=== PATIENT | male | born 1965 | race Caucasian/White ===

== ENCOUNTER 2024-10-21 08:26 | Outpatient (CLI) | payer SELFPAY ==
--- OUTSIDE RECORDS SUMMARY | 2024-10-21 08:38 | XMS_ITS | Clinical Summary ---
Author Organization [facility] Address [address] [place] [address] Care Team Providers Care Stoker Installer Name Role Phone Liyah Bridges MD Primary Care Provider [phone] Allergies No known active allergies Medications Multiple Vitamins-Minerals (MULTIVITAMIN ADULT OR) Take 1 tablet by mouth daily. Active meloxicam (MOBIC) 15 MG tabletIndications:P rimary osteoarthritis of left ankle,Pes planus of left foot Take 1 tablet (15 mg total) by mouth daily. 30 tablet 2 2 Active Active Problems Problem Noted Date Diagnosed Date Primary osteoarthritis of left ankle 03/28/2022 Pes planus of left foot 03/28/2022 Acute medial meniscus tear, right, initial encou nter 11/25/2019 Encounters Date Type Department Care Team Description 08/01/2024 9:00 AM TROUSSEAU CONSULTANT - 08/01/2024 11:59 PM [facility] Hospital Encounter [facility] [place] [address] Liyah Bridges MD Discharge Disposition: Home or Self Care (Routine Discharge) 08/01/[address] [place] [place] [address] Liyah Bridges MD 08/01/2024 Travel from Last 3 Months Family History Medical History Relation Comments No Known Problems Brother 1 No Known Problems Brother 2 No Known Problems Brother 3 No Known Problems Brother 4 Diabetes Father suicide Father No Known Problems Maternal Grandfather No Known Problems Maternal Grandmother Cancer Mother No Known Problems Paternal Grandfather No Known Problems Paternal Grandmother Cancer Sister 1 pneumonia Sister 2 Relation Status Comments Brother 1 Alive Brother 2 Alive Brother 3 Alive Brother 4 Alive Father Maternal Grandfather Maternal Grandmother Mother Paternal Grandfather Paternal Grandmother Sister 1 Sister 2 Social History Tobacco Use Types Packs/Day Years Used Date Smoking Tobacco: Never Smokeless Tobacco: Never Alcohol Use Standard Drinks/Week Comments Yes 0 (1 standard drink = 0.6 oz pur e alcohol) seldom Sex and Gender Information Value Date Recorded Sex Assigned at Male 08/01/2024 9:00 AM TROUSSEAU CONSULTANT Legal Sex Male 9:14 PM TROUSSEAU CONSULTANT Gender Identity Not on file Sexual Orientation Not on file Last Filed Vital Signs Vital Sign Reading Time Taken Comments Blood Pressure 154/92 08/03/2022 10:24 AM TROUSSEAU CONSULTANT Pulse 77 08/03/2022 10:24 AM TROUSSEAU CONSULTANT Temperature 35.7 C (96.2 F) 08/03/2022 10:24 AM TROUSSEAU CONSULTANT Respiratory Rate 18 08/03/2022 10:24 AM TROUSSEAU CONSULTANT Oxygen Saturation 100% 08/03/2022 10:24 AM TROUSSEAU CONSULTANT Inhaled Oxygen Concentration - - Weight 95.3 kg (210 lb) 07/30/2022 12:33 PM TROUSSEAU CONSULTANT Height 177.8 cm (5' 10 ) 07/30/2022 12:33 PM TROUSSEAU CONSULTANT Body Mass Index 30.13 07/30/2022 12:33 PM TROUSSEAU CONSULTANT Plan of Treatment Health Maintenance Due Date Last Done Comments Annual Physical 1966 Hepatitis C 1981 DTaP, Tdap and Td Vaccines ( 1 - Tdap) 1982 Pneumococcal Vaccine: 50+ Years (1 of 1 - PCV) 2013 Zoster Vaccines (1 of 2) 2013 COVID-19 Vaccine (2023-2 5 season) 2024 Colorectal Cancer Screening Colonoscopy (10 Years) 08/03/2032 08/03/2022, 08/03/2022 RSV Immunization or 60+ Years (1 - 1-dose 75+ series) 2038 EGD-Segovia's Surveillance Discontinued 08/03, 02/10/2019 Meningococcal B Vaccine Aged Out No l onger eligible based on patient's age to complete this topic Meningococcal Vaccine Aged Out No luis a sujatha eligible based on patient's age to complete this topic RSV Immunizations Under 20 Months Aged Out No longer eligible based on patient's age to complete this topic Procedures Procedure Name Priority Date/Time Associated Diagnosis Comments IRON SAT PANEL (IRON,IBC,%SAT) Routine 08/01/2024 9:30 AM TROUSSEAU CONSULTANT Elevated TSH LIPID PANEL Routine 08/01/2024 9:30 AM TROUSSEAU CONSULTANT Elevated TSH VITAMIN D, 25 OH Routine 08/01/2024 9:30 AM TROUSSEAU CONSULTANT Elevated TSH COMPREHENSIVE METABOLIC PANEL Routine 08/01/2024 9:30 AM TROUSSEAU CONSULTANT Elevated TSH TRIIODOTHYRONINE TOTAL , TT-3 Routine 08/01/2024 9:30 AM TROUSSEAU CONSULTANT Elevated TSH THYROXINE, FREE (FT4) Routine 08/01/2024 9:30 AM TROUSSEAU CONSULTANT Elevated TSH THYROID STIM HORMONE TSH Routine 025 9:30 AM TROUSSEAU CONSULTANT Elevated TSH COLONOSCOPY 08/03/2022 9:41 AM TROUSSEAU CONSULTANT ENDOSCOPY (SCAN ORDER) 6:53 AM TROUSSEAU CONSULTANT from Last 3 Months or Most Recently Relevant to Health Maintenance Results * (ABNORMAL) IRON SATURATION PNL (FE/TIBC/SAT) (08/01/2024 9:30 AM TROUSSEAU CONSULTANT) IRON 61(L) 65 - 175 MCG/DL 08/01/2024 11:24 AM TROUSSEAU CONSULTANT [facility] IRON BINDING CAPACITY 353 250 - 450 MCG/DL 08/01/2024 11:24 AM TROUSSEAU CONSULTANT [facility] IRON SATURATION 17 % 11:24 AM TROUSSEAU CONSULTANT [facility] Comment:REFERENCE RANGE NOT ESTABLISHED 08/01/2024 9:30 AM TROUSSEAU CONSULTANT us Liyah Bridges MD LABORATORY Final Resu lt [facility] [address] [place] [address], [place] [phone] * TRIIODOTHYRONINE TOTAL , TT-3 (08/01/2024 9:30 AM TROUSSEAU CONSULTANT) T3 TOTAL 113 60 - 181 NG/DL 08/02/2024 11:[address] [facility] 08/01/2024 9:30 AM TROUSSEAU CONSULTANT us Liyah Bridges MD LABORATORY Final Resu lt [facility] [address] [place] [address], [place] [phone] * (ABNORMAL) COMPREHENSIVE METABOLIC PANEL (08/01/2024 9:30 AM TROUSSEAU CONSULTANT) SODIUM S/P/B 144 136 - 145 MMOL/L 08/01/2024 10:11 AM [facility] POTASSIUM S/P/B 4.6 3.5 - 5.1 MMOL/L 08/01/2024 10:11 AM [facility] CHLORIDE S/P/B 108(H) 98 - 107 MMOL/L 08/01/2024 10:11 AM [facility] CO2 29.2 21.0 - 32.0 MMOL/L 08/01/2024 10:11 AM [facility] GLUCOSE 110(H) 70 - 99 MG/DL 08/01/2024 10:11 AM [facility] Comment: FASTING GLUCOSE 100 TO 125 MG/DL IS CONSISTENT WITH IMPAIRED FASTING GLUCOSE. FASTING GLUCOSE >125 MG/DL IS CONSISTENT WITH DIABETES. RANDOM GLUCOSE >200 MG/DL WITH HYPERGLYCEMIC SYMPTOMS IS CONSISTENT WITH DIABETES. PER ADA GUIDELINES BUN 15 6 - 24 MG/DL 08/01/2024 10:11 AM [facility] CREATININE S/P/B 1.02 0.70 - 1.30 MG/DL 08/01/2024 10:11 AM [facility] CALCIUM S/P/B 8.8 8.4 - 10.5 MG/DL 08/01/2024 10:11 AM [facility] BILIRUBIN TOTAL S/P/B 0.5 0.2 - 1.0 MG/DL 08/01/2024 10:11 AM [facility] Comment: THIS ASSAY IS NOT RECOMMENDED FOR PATIENTS UNDERGOING TREATMENT WITH ELTROMBOPAG DUE TO THE POTENTIAL FOR FALSELY ELEVATED RESULTS. ALKALINE PHOSPHATASE S/P/B 84 45 - 115 U/L 08/01/2024 10:11 AM [facility] AST 19 15 - 37 U/L 08/01/2024 10:11 AM [facility] ALT 32 16 - 63 U/L 08/01/2024 10:11 AM [facility] TOTAL PROTEIN S/P/B 7.5 6.4 - 8.2 G/DL 08/01/2024 10:11 AM [facility] ALBUMIN S/P/B 3.9 3.4 - 5.0 G/DL 08/01/2024 10:11 AM [facility] ANION GAP 6.8 5.0 - 15.0 MMOL/L 08/01/2024 10:11 AM [facility] OSMOLALITY (CALC) 299 MOSM/KG 025 10:11 AM [facility] Comment:REFERENCE RANGE NOT ESTABLISHED GFR ESTIMATE 84(L) >89 ML/MIN/1. 73 M2 08/01/2024 10:11 AM [facility] GFR NOTES GFR REFERENCE S: 08/01/2024 10:11 AM [facility] Comment: THE ESTIMATED GFR IS CALCULATED USING THE 2020 CKD-EPI EQUATION. THE FOLLOWING CATEGORIES FOR GRADING RENAL FUNCTION ARE RECOMMENDED BY THE INTERNATIONAL SOCIETY OF NEPHROLOGY (KDIGO 2012 CLINICAL PRACTICE GUIDELINE). G1,NORMAL OR HIGH: >89 ml/min/1.73 m2 G2,MILDLY DECREASED: 60-89 ml/min/1.73 m2 G3A,MILDLY TO MODERATELY DECREASED: 45-59 ml/min/1.73 m2 G3B,MODERATELY TO SEVERELY DECREASED: 30-44 ml/min/1.73 m2 G4,SEVERELY DECREASED: 15-29 ml/min/1.73 m2 G5,KIDNEY FAILURE: <15 ml/min/1.73 m2 08/01/2024 9:30 AM TROUSSEAU CONSULTANT us Liyah Bridges MD LABORATORY Final Resu lt Performing Organization Address [facility]/ZIP Co de Phone Number [facility] [address] [place] [address], * LIPID PANEL (08/01/2024 9:30 AM TROUSSEAU CONSULTANT) CHOLESTEROL 129 MG/DL 08/01/2024 7:34 PM TROUSSEAU CONSULTANT [facility] Comment:DESIRABLE: <200 TRIGLYCERIDES 81 MG/DL 08/01/2024 7:34 PM TROUSSEAU CONSULTANT [facility] Comment:<150 NORMAL HDL 42 >39 MG/DL 08/01/2024 7:34 PM TROUSSEAU CONSULTANT [facility] LDL-C 71 MG/DL 08/01/2024 7:34 PM TROUSSEAU CONSULTANT [facility] Comment:<100 OPTIMAL VLDL CALCULATION 16 MG/DL 08/01/19 7:34 PM TROUSSEAU CONSULTANT [facility] Comment:REFERENCE RANGE NOT ESTABLISHED CHOL/HDL RATIO 3.1 08/01/2024 7:34 PM TROUSSEAU CONSULTANT [facility] Comment:REFERENCE RANGE NOT ESTABLISHED LDL/HDL 1.7 08/01/2024 7:34 PM TROUSSEAU CONSULTANT [facility] Comment:REFERENCE RANGE NOT ESTABLISHED NON HDL CHOLESTEROL 87 MG/DL 08/01/2024 7:34 PM TROUSSEAU CONSULTANT [facility] Comment:REFERENCE RANGE NOT ESTABLISHED 08/01/2024 9:30 AM TROUSSEAU CONSULTANT us Liyah Bridges MD LABORATORY Final Resu lt [facility] [address] [place] [address], [place] [phone] * THYROXINE, FREE (FT4) (08/01/2024 9:30 AM TROUSSEAU CONSULTANT) FREE T4 0.96 0.76 - 1.46 NG/DL 08/01/2024 11:47 AM TROUSSEAU CONSULTANT [facility] 08/01/2024 9:30 AM TROUSSEAU CONSULTANT Liyah Bridges MD LABORATORY Final Resu lt Performing Organization Address [facility]/ZIP Co de Phone Number [facility] [address] [place] [address], * (ABNORMAL) THYROID STIM HORMONE TSH (08/01/2024 9:30 AM TROUSSEAU CONSULTANT) TSH 3.927(H) 0.358 - 3.740 uIU/ML 08/01/2024 11:47 AM TROUSSEAU CONSULTANT [facility] Comment: ASSAY PERFORMED BY CHEMILUMINESCENT IMMUNOASSAY METHODOLOGY USING [employer]. PATIENT RESULTS DETERMINED BY ASSAYS FROM DIFFERENT MANUFACTURERS AND/OR BY DIFFERENT METHODS MAY NOT BE COMPARABLE. 08/01/2024 9:30 AM TROUSSEAU CONSULTANT us Liyah Bridges MD LABORATORY Final Resu lt Performing Organization Address [facility] Co de Phone Number [facility] [address] [place] [address], [place] [phone] * VITAMIN D, 25 OH (08/01/2024 9:30 AM TROUSSEAU CONSULTANT) VITAMIN D 25 HYDROXY TOTAL S/P/B 28.5 20.0 - 50.0 NG/ML 08/01/2024 7:45 PM TROUSSEAU CONSULTANT [facility] Comment: <10 ng/mL (Severe deficiency) 10 TO 19 ng/mL (Mild to Moderate deficiency) 20 TO 50 ng/mL (Optimum levels) 51 TO 80 ng/mL (Increased risk of hypercalciuria) >80 ng/mL (Toxicity possible) 08/01/2024 9:30 AM TROUSSEAU CONSULTANT Liyah Bridges MD LABORATORY Final Resu lt [facility] [address] [place] [address], [id number] * Colonoscopy (08/03/2022 9:41 AM TROUSSEAU CONSULTANT) Tapan Lopez MD GI PROCEDURE ORDERABLES Final Result * ENDOSCOPY (08/03/2022 6:53 AM TROUSSEAU CONSULTANT) Tapan Lopez MD SCANNING Final Result from Last 3 Months or Most Recently Relevant to Health Maintenance Insurance AET Care Teams Stoker Installer Relationship Specialty Start Date End Date Liyah Bridges MD [address] [place] [phone] PCP - General FAMILY PRACTICE 08/28/23
--- OUTSIDE RECORDS SUMMARY | 2024-10-21 08:38 | XMS_ITS | Encounter Summary ---
Author Organization [facility] Address [address] [place] [address] Care Team Providers Care Incinerator Attendant Name Role Phone Marshall Anderson MD Primary Care Provider [phone] Jann Gee MD Primary Care Provider Liyah Bridges MD Primary Care Provider + [phone] Encounter Details Date Type Department Care Team (Late st Contact Info) Description 02/02/2019 Pre-Procedure Call [facility] [address] [place] [address] Tapan Lopez MD [address] [place] [phone] Social History Tobacco Use Types Packs/Day Years Used Date Smoking Tobacco: Never Smokeless Tobacco: Never Alcohol Use Standard Drinks/Week Comments Yes 0 (1 standard drink = 0.6 oz pur e alcohol) Sex and Gender Information Value Date Recorded Sex Assigned at Male 08/01/2024 9:00 AM LOAN AUDITOR Legal Sex Male 9:14 PM LOAN AUDITOR Gender Identity Not on file Sexual Orientation Not on file documented as of this encounter Plan of Treatment Not on file documented as of this encounter Visit Diagnoses Not on filedocumented in this encounter Care Teams Incinerator Attendant Relationship Specialty Start Date End Date Marshall Anderson MD [address] [place] [phone] PCP - General FAMILY PRACTICE 10/28/18 08/18/20 Jann Gee MD [address] [place] [phone] PCP - General FAMILY PRACTICE 08/19/20 08/27/23 Liyah Bridges MD [address] [place] [phone] PCP - General FAMILY PRACTICE 08/28/23 documented as of this encounter
== END 2024-10-21 08:27 | disposition home or self-care (01) ==
LOC: CHSLAB 08:32
PROVIDERS: PCP Family Medicine; Visit Provider Family Medicine
DX: R73.03 Prediabetes (principal)
CPT/HCPCS: 99199